=== PATIENT | female | born 1960 | race Caucasian/White ===

== ENCOUNTER 2018-08-01 12:41 | Emergency (ER) | payer OTHER ==
--- NOTE | 2018-08-01 13:29 | EDPHY ---
HPI/HX/ROS/PE/MDM Narrative: CHIEF COMPLAINT: Left-sided chest pain HPI: The patient is a 58 y/o female with a history of hypertension arriving with her complaining of acute onset left-sided chest pain while sitting on the couch this morning at 10:00, about 3.5 hours ago. She describes very sharp pain on her left anterior chest that is worse with deep inspiration, movement, and bending over. She's never had pain like this previously and has not taken anything for pain. She denies vomiting, abdominal pain, diarrhea, fever. She has had an ongoing cough with bronchial asthma for the last 5 weeks after van a cold from her son that she is still using an inhaler for. She denies history of cardiac disease, respiratory disease, or known clotting disorder. UTI on antibiotic REVIEW OF SYSTEMS: A comprehensive 10 system review of systems is otherwise negative aside from elements mentioned in the history of present illness. Recently on antibiotics for UTI. PMH: Hypertension FAMILY HISTORY: "Stomach" aneurysms in multiple male relatives SOCIAL HISTORY: at bedside. 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 Lives in [place]. PHYSICAL EXAM: General:Patient is alert, in no acute distress. ENT:Eyes are normal to inspection. ENT inspection normal. Neck: Normal inspection. Full range of motion. Respiratory:No respiratory distress. Breath sounds normal bilaterally. Cardiovascular: Regular rate and rhythm. Strong peripheral pulses. Normal cap refill. Abdomen:The abdomen is nontender to palpation. There are no peritoneal signs. Back: Normal to inspection. No tenderness to palpation. Skin: Normal color. No rash. Warm and dry. Extremities: Normal appearance. Full range of motion. Neuro: Oriented x3. Normal motor function. Normal sensory function. ED Course: This is a 58 y/o female who presents with a 3.5-hour history of acute onset pleuritic left-sided chest pain. Her pain is not reproducible on exam and her lung sounds are clear. Doubt ACS. Presentation more concerning for PE. Plan for IV, labs including troponin and d-dimer, EKG, and chest x-ray. 30mg IV Toradol ordered for pain. The 12 lead EKG was interpreted by myself. See hard copy and/or "tracemaster" electronic copy for interpretation. D-dimer and troponin are normal. Chest x-ray: no infiltrate Reassessed patient and discussed findings. She is feeling improved after Toradol. Offered chest CTA for further evaluation, which she declined. She would like to return home and follow up with her doctor instead. Recommended ibuprofen for pain. Return precautions discussed. She is comfortable with discharge plan. - Data Points Imaging Results: Imaging Impressions Chest X-Ray 08/01/18 13:50 Impression: 1. Probable mild underlying bronchitis. No other findings for acute cardiopulmonary abnormality. 2. Small calcified granuloma in the right upper lobe. Imaging: I viewed and interpreted images myself Laboratory Results: Laboratory Results 08/01/18 13:00 08/01/18 13:00 08/01/18 08/01/18 08/01/18 13:01 13:00 13:00 WBC 6.67 10^3/uL 10^3/uL (3.80-9.50) RBC 4.40 10^6/uL 10^6/uL (4.18-5.33) Hgb 14.0 g/dL g/dL (12.6-16.3) Hct 42.3 % % (38.0-47.0) MCV 96.1 fL fL (81.5-99.8) MCH 31.8 pg pg (27.9-34.1) MCHC 33.1 g/dL g/dL (32.4-36.7) RDW 12.0 % % (11.5-15.2) Plt Count 249 10^3/uL 10^3/uL (150-400) MPV 11.3 fL fL (8.7-11.7) Neut % (Auto) 68.1 % % (39.3-74.2) Lymph % (Auto) 19.2 % % (15.0-45.0) [place] % (Auto) 9.4 % % (4.5-13.0) Eos % (Auto) 1.9 % % (0.6-7.6) Baso % (Auto) 1.0 % % (0.3-1.7) Nucleat RBC Rel Count 0.0 % % (0.0-0.2) Absolute Neuts (auto) 4.53 10^3/uL 10^3/uL (1.70-6.50) Absolute Lymphs (auto) 1.28 10^3/uL 10^3/uL (1.00-3.00) Absolute Monos (auto) 0.63 10^3/uL 10^3/uL (0.30-0.80) Absolute Eos (auto) 0.13 10^3/uL 10^3/uL (0.03-0.40) Absolute Basos (auto) 0.07 10^3/uL 10^3/uL (0.02-0.10) Absolute Nucleated RBC 0.00 10^3/uL 10^3/uL (0-0.01) Immature Gran % 0.4 % % (0.0-1.1) Immature Gran # 0.03 10^3/uL 10^3/uL (0.00-0.10) D-Dimer Sodium 134 mEq/L L mEq/L (135-145) Potassium 3.4 mEq/L L mEq/L (3.5-5.2) Chloride 103 mEq/L mEq/L (97-110) Carbon Dioxide 23 mEq/l mEq/l (22-31) Anion Gap 8 mEq/L mEq/L (6-14) BUN 15 mg/dL mg/dL (7-23) Creatinine 0.7 mg/dL mg/dL (0.6-1.0) Estimated GFR > 60 Glucose 102 mg/dL H mg/dL (70-100) Calcium 9.2 mg/dL mg/dL (8.5-10.4) POC Troponin I 0.01 ng/mL ng/mL (0.00-0.08) 08/01/18 13:00 WBC RBC Hgb Hct MCV MCH MCHC RDW Plt Count MPV Neut % (Auto) Lymph % (Auto) [place] % (Auto) Eos % (Auto) Baso % (Auto) Nucleat RBC Rel Count Absolute Neuts (auto) Absolute Lymphs (auto) Absolute Monos (auto) Absolute Eos (auto) Absolute Basos (auto) Absolute Nucleated RBC Immature Gran % Immature Gran # D-Dimer 0.38 ug/mLFEU ug/mLFEU (0.00-0.50) Sodium Potassium Chloride Carbon Dioxide Anion Gap BUN Creatinine Estimated GFR Glucose Calcium POC Troponin I Medications Given: Discontinued Medications Ketorolac Tromethamine (Toradol) 30 mg IVP EDNOW ONE Stop: 08/01/18 14:05 Last Admin: 08/01/18 14:10 Dose: 30 mg Point of Care Test Results: Chemistry 08/01/18 13:01 POC Troponin I 0.01 ng/mL ng/mL (0.00-0.08) General Time Seen by Provider: 08/01/18 13:14 Initial Vital Signs: Initial Vital Signs Temperature (C) 36.6 C 08/01/18 12:50 Heart Rate 80 08/01/18 12:50 Respiratory Rate 18 08/01/18 12:50 Blood Pressure 177/112 H 08/01/18 12:50 O2 Sat (%) 96 08/01/18 12:50 O2 Delivery Mode Room Air Allergies/Adverse Reactions: No Known Allergies Allergy (Verified 08/01/18 12:52) Home Medications: Medication Instructions Recorded Albuterol [Proventil] 2 puffs IH Q6 PRN #1 aerosol 07/10/14 Codeine/Promethazine [Phenergan W/ 5 ml PO Q6 PRN #1 bottle 07/10/14 Codeine Syrup] Departure - Departure Disposition: Home, Routine, Self-Care Clinical Impression: Pleurisy Condition: Good Instructions: Pleurisy (ED) Additional Instructions: Take 600mg ibuprofen every 6 hours as needed for pain over the next few days. You received a similar medication here today (Toradol) and should wait ~8 hours until taking a dose of ibuprofen. Follow up with your primary care provider for unimproved symptoms over the next 2-3 days. Return to the ED for any worsening of condition. Referrals: Kimberly Valle MD [Medical Doctor] - As per Instructions Report Scribed for: Fabien Mathew Report Scribed by: Lupe Oscar Date of Report: 08/01/18 Time of Report: 13:49 Physician Review and Approval Statement: Portions of this note were transcribed by an ED scribe. I personally performed the history, physical exam, and medical decision making; and confirm the accuracy of the information in the transcribed note.
[2018-08-01] MEDS ORDERED: KETOROLAC 30 MG/1 ML SDV IVP ONE (14:04)
[2018-08-01 14:47] LABS: PLATELET COUNT 249 10^3/uL (150-400)
[2018-08-01 15:17] VITALS: BP 135/87
--- NOTE | 2018-08-02 14:52 | CPEKG ---
Test Reason : OPEN Blood Pressure : / mmHG Vent. Rate : 066 BPM Atrial Rate : 066 BPM P-R Int : 145 ms QRS Dur : 097 ms QT Int : 420 ms P-R-T Axes : 036 -49 022 degrees QTc Int : 441 ms Sinus rhythm Left anterior fascicular block Abnormal R-wave progression, early transition Confirmed by Fabien Mathew ([id number] on 08/02/2018 2:51:30 PM Referred By: Confirmed By:Fabien Mathew
== END 2018-08-01 15:17 | disposition home or self-care (01) ==
DX: R09.1 Pleurisy (principal)
CPT/HCPCS: 84484-PO; 96374; J1885